=== PATIENT | female | born 1950 | race Caucasian/White ===

== ENCOUNTER 2025-04-18 18:10 | Emergency (ER) | payer MEDICARE ==
[~2025-04-18] VITALS: Ht 167.6 cm; Wt 75.7 kg
[2025-04-18] MEDS ORDERED: LEVO112T5 PO (18:25)
[2025-04-18] MEDS ORDERED: ROSU40TA PO (18:26)
[2025-04-18] MEDS ORDERED: diphenhydrAMINE 50 MG/1 ML VIAL ONE (19:29)
[2025-04-18] MEDS ORDERED: ONDANSETRON 4 MG/2 ML VIAL ONE (19:29)
[2025-04-18] MEDS ORDERED: OXYCODONE/APAP 5-325 MG TABLET ONE (19:29)
[2025-04-18 19:31] LABS: PLATELET COUNT (AUTO) 190 K/uL (179-408); RED BLOOD CELL COUNT(AUTO) 4.80 MIL/uL (3.63-4.92); RED CELL DISTRIBUTION WIDTH 13.8 % (12.3-17.7); WHITE BLOOD COUNT (AUTO) 10.1 K/uL (3.8-11.8)
[2025-04-18] MEDS: diphenhydrAMINE 50 MG/1 ML VIAL IV ONE (19:38)
[2025-04-18 19:40] LABS: CREATININE 0.7 mg/dL (0.6-1.3); SODIUM SERUM 141 mmol/L (136-145); UREA NITROGEN, BLOOD 21 mg/dL (7-18)
[2025-04-18] MEDS: ONDANSETRON 4 MG/2 ML VIAL IV ONE (19:40)
[2025-04-18] MEDS: OXYCODONE/APAP 5-325 MG TABLET PO ONE (19:40)
[2025-04-18] MEDS: IV NORMAL SALINE 500 ML BAG IV ONE (19:40)
[2025-04-18 19:46] LABS: ASPARTATE AMINOTRANSFERASE 43 U/L (15-37); TOTAL PROTEIN, SERUM 7.2 g/dL (6.4-8.2)
[2025-04-18] MEDS ORDERED: MORPHINE SULFATE 4 MG/1 ML DISP.SYRIN ONE (21:21)
[2025-04-18] MEDS: MORPHINE SULFATE 4 MG/1 ML DISP.SYRIN IV ONE (21:25)
[2025-04-18] MEDS ORDERED: MECL-159 PO (21:32)
[2025-04-18] MEDS ORDERED: OXYC-128 PO (21:32)
[2025-04-18] MEDS ORDERED: ONDA4TAB11 PO (21:32)
[2025-04-18 22:19] VITALS: BP 137/76; O2SAT 96
== END 2025-04-18 22:20 | disposition home or self-care (01) ==
LOC: ER 18:26
DX: S40.012A Contusion of left shoulder, initial encounter (principal); R42 Dizziness and giddiness; R41.82 Altered mental status, unspecified; R51.9 Headache, unspecified; R07.9 Chest pain, unspecified; R94.31 Abnormal electrocardiogram [ECG] [EKG]; E78.5 Hyperlipidemia, unspecified; E03.9 Hypothyroidism, unspecified; Z79.899 Other long term (current) drug therapy; Z88.5 Allergy status to narcotic agent; W18.39XA Other fall on same level, initial encounter; Y93.89 Activity, other specified; Y92.89 Other specified places as the place of occurrence of the external cause; Y99.8 Other external cause status
CPT/HCPCS: 29105; 36415; 70450; 71045; 73030; 73200; 80048; 80076; 83880; 84484; 85025; 93005; 96361; 96374; 96375; 99285; J1200; J2270; J2405; J7040; A4606; A4663